=== PATIENT | female | born 1995 | race African-American/Black ===

== ENCOUNTER 2019-12-07 04:34 | Day surgery (SDC) | payer OTHER ==
[2019-12-06 10:35] VITALS: BMI 53.1
[~2019-12-07 04:34] MED LIST: BUPIVACAINE HCL/PF 0.5% (5 MG/ML) 30 ML VIAL IJ ONE; IOHEXOL 180 MG/1 ML ML IJ ONE; LIDOCAINE HCL 1%, 10 MG/ML (20ML VIAL) INF ONE
[2019-12-07] MEDS ORDERED: LIDOCAINE HCL 1%, 10 MG/ML (20ML VIAL) ONE (07:16)
[2019-12-07] MEDS ORDERED: BUPIVACAINE HCL/PF 0.25% (2.5MG/ML) 10 ML VIAL ONE (07:16)
[2019-12-07] MEDS ORDERED: LIDOCAINE HCL 1%, 10 MG/ML (20ML VIAL) INF ONE (11:48)
[2019-12-07] MEDS ORDERED: IOHEXOL 180 MG/1 ML ML IJ ONE (11:49)
[2019-12-07] MEDS ORDERED: BUPIVACAINE HCL/PF 0.75% 10 ML VIAL PNB ONE (11:49)
[2019-12-07 13:28] VITALS: TEMP 97.4
[2019-12-07 13:33] VITALS: BP 120/70; PULSE 74
--- NOTE | 2019-12-10 22:03 | PROC ---
Procedure Note Procedure: Pre procedure Diagnosis: Lumbar Spondylosis Post Procedure Diagnosis: same Anesthesia: Local Procedure Performed: Right and Left L3 L4 L5 Medial Branch Blocks under Fluoroscopic Guidance Procedure: After the risks and benefits were explained, informed consent was obtained. The patient was then taken to the procedure room and positioned prone on the procedure table. Time out was performed. The region overlying the appropriate vertebral bodies was identified using fluoroscopy. The skin was prepped and draped in the usual sterile fashion. The skin and soft tissues were anesthetized using 1% lidocaine. Using fluoroscopic guidance, 22 gauge 5 inch spinal needles were then introduced to the juncture of the superior articular processes and the transverse processes of the RIGHT L3, L4, and L5 medial branches are located. Omnipaque 180 confirmed appropriate needle placement. There was no epidural or vascular flow observed. .75% bupivacaine was drawn into a syringe. 0.5cc of this solution was then injected at each level. The same procedure was repeated on the LEFT side at the same levels. The patient tolerated the procedure well and there were no complications. The patient was taken to the post procedure recovery area in good condition. Vital signs remained stable before, and after the procedure. The patient was given oral follow-up instructions.The patient was givena follow up appointment with me in the near future. Janusz Osullivan D.O.
== END 2019-12-07 13:05 | disposition home or self-care (01) ==
LOC: JASU-SURG 04:34
PROVIDERS: ATTEND Pain Medicine Pain Medicine
PROC: 3E0T33Z Introduction of Anti-inflammatory into Peripheral Nerves and Plexi, Percutaneous Approach (ICD-10-PCS; 2019-12-07)
PROC: 3E0T3BZ Introduction of Anesthetic Agent into Peripheral Nerves and Plexi, Percutaneous Approach (ICD-10-PCS; principal; 2019-12-07 11:30)
DX: M47.817 Spondylosis without myelopathy or radiculopathy, lumbosacral region (principal); M54.5 Low back pain
CPT/HCPCS: 36415; 76000-TC-FY; 84703

== ENCOUNTER 2019-12-21 05:23 | Day surgery (SDC) | payer OTHER ==
[2019-12-20 08:35] VITALS: BMI 53.1
[~2019-12-21 05:23] MED LIST changes: -BUPIVACAINE HCL/PF 0.5% (5 MG/ML) 30 ML VIAL IJ ONE; +BUPIVACAINE HCL/PF 0.75% 10 ML VIAL NR ONE; +LIDOCAINE HCL 1% PRESERVATIVE FREE - 30ML VIAL NR ONE; -LIDOCAINE HCL 1%, 10 MG/ML (20ML VIAL) INF ONE
--- NOTE | 2019-12-21 11:41 | PROC ---
Procedure Note Procedure: Pre procedure Diagnosis: Sacroilliac Joint Dysfunction Post Procedure Diagnosis: same Anesthesia: local Procedure Performed: Right & Left Sacroilliac Joint Injection Under Fluoroscopic Guidance After the risks and benefits were explained, informed consent was obtained. The patient was then taken to the procedure room and positioned prone on the procedure table. Time out was performed. The region overlying the right sacroiliac joint was identified using fluoroscopy. The skin was prepped and draped in the usual sterile fashion. The skin and soft tissues were anesthetized using 2% lidocaine. Using fluoroscopic guidance, a 22 gauge 3.5 inch spinal needle was then introduced to the inferior aspect of the posterior Right sacroiliac joint. Omnipaque 180 confirmed appropriate needle placement. 1 cc .5% bupivacaine and 1 cc Kenalog was then injected. The same was repeated on the Left. The patient tolerated the procedure well and there were no complications. The patient was taken to the post procedure recovery area in good condition. Vital signs remained stable before, during, and after the procedure. The patient was given oral and written follow-up instructions. The patient was given a follow up appointment with me in the near future. Janusz Osullivan DO
--- NOTE | 2019-12-21 11:41 | HP ---
Admitting History and Physical - Admission Chief Complaint: Chronic low back pain History of Present Illness: The patient complains of chronic low back pain. History Source: Patient - Past Medical History ...LMP: 12/16/19 - Smoking History Smoking history: Never smoked Home Medications - Allergies Allergies/Adverse Reactions: Allergies Allergy/AdvReac Type Severity Reaction Status Date / Time No Known Allergies Allergy Verified 12/21/19 10:15 - Home Medications Home Medications: Ambulatory Orders Benztropine Mesylate [Cogentin -] 1 mg PO TID 12/06/19 Gabapentin [Neurontin] 600 mg PO BID 12/06/19 Haloperidol [Haldol -] 2.5 mg PO DAILY 12/06/19 Haloperidol [Haldol -] 5 mg PO HS 12/06/19 LORazepam [Ativan] 0.5 mg PO TID 12/06/19 Paroxetine HCl [Paxil] 50 mg PO HS 12/06/19 Quetiapine Fumarate [Seroquel] 400 mg PO HS 12/06/19 traZODone HCL [Trazodone HCl] 50 mg PO DAILY 12/20/19 Review of Systems - Review of Systems Constitutional: reports: No Symptoms Eyes: reports: No Symptoms HENT: reports: No Symptoms Neck: reports: No Symptoms Cardiovascular: reports: No Symptoms Respiratory: reports: No Symptoms Gastrointestinal: reports: No Symptoms Genitourinary: reports: No Symptoms Musculoskeletal: reports: Back Pain Neurological: reports: No Symptoms Endocrine: reports: No Symptoms Hematology/Lymphatic: reports: No Symptoms Psychiatric: reports: No Symptoms Physical Examination Vital Signs: Vital Signs Temperature 97.1 F L 12/21/19 09:30 Pulse Rate 82 12/21/19 09:30 Respiratory Rate 20 12/21/19 09:30 Blood Pressure 114/74 12/21/19 09:30 O2 Sat by Pulse Oximetry (%) 98 12/21/19 10:22 Constitutional: Yes: No Distress, Calm Eyes: Yes: Conjunctiva Clear, EOM Intact HENT: Yes: Atraumatic, Normocephalic Neck: Yes: Trachea Midline Cardiovascular: Yes: Regular Rate and Rhythm Respiratory: Yes: WNL, Regular Gastrointestinal: Yes: WNL Musculoskeletal: Yes: Back Pain Extremities: Yes: WNL Neurological: Yes: WNL ...Motor Strength: WNL Psychiatric: Yes: WNL Imaging - Results X-ray: Report Reviewed, Image Reviewed MRI: Report Reviewed, Image Reviewed Assessment/Plan The patients low back adn buttock pain 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 I will perform bilateral SIJ injections.
[2019-12-21] MEDS ORDERED: LIDOCAINE HCL/PF 1% SDV 5ML VIAL ONE (12:16)
[2019-12-21] MEDS ORDERED: TRIAMCINOLONE ACET 40MG/1ML VIAL ONE (12:21)
[2019-12-21] MEDS ORDERED: IOHEXOL 180 MG/1 ML ML IJ ONE (12:33)
[2019-12-21] MEDS ORDERED: BUPIVACAINE HCL/PF 0.5% (5 MG/ML) 30 ML VIAL IJ ONE (12:34)
[2019-12-21] MEDS ORDERED: TRIAMCINOLONE ACET 40MG/1ML VIAL IM ONE (12:34)
[2019-12-21] MEDS ORDERED: LIDOCAINE HCL 1% PRESERVATIVE FREE - 30ML VIAL NR ONE (12:36)
[2019-12-21 13:18] VITALS: PULSE 80; TEMP 97.2
[2019-12-21 13:59] VITALS: BP 100/50
== END 2019-12-21 13:40 | disposition home or self-care (01) ==
LOC: JASU-SURG 05:23
PROVIDERS: ATTEND Pain Medicine Pain Medicine
PROC: 3E0U3BZ Introduction of Anesthetic Agent into Joints, Percutaneous Approach (ICD-10-PCS; 2019-12-21)
PROC: 3E0U33Z Introduction of Anti-inflammatory into Joints, Percutaneous Approach (ICD-10-PCS; principal; 2019-12-21 10:30)
DX: M53.3 Sacrococcygeal disorders, not elsewhere classified (principal); M54.5 Low back pain
CPT/HCPCS: 36415; 76000-TC-FY; 84703

== ENCOUNTER 2020-01-18 04:41 | Day surgery (SDC) | payer OTHER ==
[2020-01-17 15:52] VITALS: BMI 53.5
--- NOTE | 2020-01-17 22:46 | PROC ---
Procedure Note Procedure: Pre procedure Diagnosis: Sacroiliac dysfunction Post Procedure Diagnosis: same Anesthesia: Local Procedure Performed: Right and Left L5 Medial Branch Block and S1 S2 S3 Lateral branch blocks under Fluoroscopic Guidance Procedure: After the risks and benefits were explained, informed consent was obtained. The patient was then taken to the procedure room and positioned prone on the procedure table. Time out was performed. The region overlying the appropriate vertebral bodies was identified using fluoroscopy. The skin was prepped and draped in the usual sterile fashion. The skin and soft tissues were anesthetized using 1% lidocaine. Using fluoroscopic guidance, 22 gauge 3.5 inch spinal needles were then introduced to the juncture of the superior articular processes and the transverse processes of the RIGHTL5 medial branches and the superior lateral S1 S2 Ss3 foramens where the lateral branches are located. Omnipaque 180 confirmed appropriate needle placement. There was no epidural or vascular flow observed. .75% bupivacaine was drawn into a syringe. 0.5cc of this solution was then injected at each level. The same procedure was repeated on the LEFT side at the same levels. The patient tolerated the procedure well and there were no complications. The patient was taken to the post procedure recovery area in good condition. Vital signs remained stable before, and after the procedure. The patient was given oral follow-up instructions.The patient was givena follow up appointment with me in the near future. Janusz Osullivan D.O.
[2020-01-18] MEDS ORDERED: BUPIVACAINE HCL/PF 0.75% 10 ML VIAL NR ONE (11:11)
[2020-01-18] MEDS ORDERED: LIDOCAINE HCL 1% PRESERVATIVE FREE - 30ML VIAL IJ ONE (11:11)
[2020-01-18] MEDS ORDERED: IOHEXOL 180 MG/1 ML ML IJ ONE (11:11)
[2020-01-18 12:05] VITALS: BP 103/57; PULSE 73; TEMP 97.3
== END 2020-01-18 12:30 | disposition home or self-care (01) ==
LOC: JASU-SURG 04:41
PROVIDERS: ATTEND Pain Medicine Pain Medicine
PROC: 3E0T33Z Introduction of Anti-inflammatory into Peripheral Nerves and Plexi, Percutaneous Approach (ICD-10-PCS; 2020-01-18)
PROC: 3E0T3BZ Introduction of Anesthetic Agent into Peripheral Nerves and Plexi, Percutaneous Approach (ICD-10-PCS; principal; 2020-01-18 10:30)
DX: M53.3 Sacrococcygeal disorders, not elsewhere classified (principal)
CPT/HCPCS: 76000-TC-FY; 84703

== ENCOUNTER 2020-02-29 04:13 | Day surgery (SDC) | payer OTHER ==
[2020-02-28 18:31] VITALS: BMI 51.5
[2020-02-29] MEDS ORDERED: LIDOCAINE 1% P/F 10 MG/ML VIAL INF ONE (12:54)
[2020-02-29] MEDS ORDERED: LIDOCAINE HCL/PF 1% SDV 5ML VIAL ONE (13:31)
[2020-02-29] MEDS ORDERED: BUPIVACAINE HCL/PF 0.75% 10 ML VIAL ONE (13:31)
[2020-02-29 14:44] VITALS: BP 124/67; PULSE 69; TEMP 97.8
== END 2020-02-29 14:05 | disposition home or self-care (01) ==
LOC: JASU-SURG 04:13
PROVIDERS: ATTEND Pain Medicine Pain Medicine
PROC: 01HY3MZ Insertion of Neurostimulator Lead into Peripheral Nerve, Percutaneous Approach (ICD-10-PCS; principal; 2020-02-29 12:00)
DX: G89.4 Chronic pain syndrome (principal); M54.5 Low back pain
CPT/HCPCS: 64555; C1778; 81025

== ENCOUNTER 2020-03-14 05:39 | Day surgery (SDC) | payer OTHER ==
[2020-03-12 18:05] VITALS: BMI 51.5
[2020-03-14] MEDS ORDERED: LIDOCAINE HCL 1% PRESERVATIVE FREE - 30ML VIAL INF ONE (10:42)
[2020-03-14 12:02] VITALS: BP 126/68; PULSE 73; TEMP 97.3
== END 2020-03-14 12:20 | disposition home or self-care (01) ==
LOC: JASU-SURG 05:39
PROVIDERS: ATTEND Pain Medicine Pain Medicine
PROC: 01HY3MZ Insertion of Neurostimulator Lead into Peripheral Nerve, Percutaneous Approach (ICD-10-PCS; principal; 2020-03-14 10:00)
DX: G89.4 Chronic pain syndrome (principal); M54.5 Low back pain
CPT/HCPCS: 64555; C1778; 76000-TC-FY; 81025

== ENCOUNTER 2020-04-18 04:25 | Day surgery (SDC) | payer OTHER ==
[2020-04-14 13:24] VITALS: BMI 51.5
[2020-04-18] MEDS ORDERED: BUPIVACAINE HCL/PF 0.75% 10 ML VIAL ONE (08:03)
[2020-04-18] MEDS ORDERED: SODIUM CHLORIDE 0.9% P/F 10 ML VIAL IJ ONE (08:06)
[2020-04-18] MEDS ORDERED: LIDOCAINE HCL/PF 2% SDV 5ML VIAL ONE (08:06)
[2020-04-18] MEDS ORDERED: LIDOCAINE HCL/PF 1% SDV 5ML VIAL ONE (08:11)
[2020-04-18] MEDS ORDERED: DEXAMETHASONE SOD PHOSPHATE/PF 10 MG/ML SDV ONE (08:11)
[2020-04-18] MEDS ORDERED: LIDOCAINE HCL 1% PRESERVATIVE FREE - 30ML VIAL INF ONE (09:24)
[2020-04-18 11:24] VITALS: BP 100/60; PULSE 68; TEMP 97.6
== END 2020-04-18 11:30 | disposition home or self-care (01) ==
LOC: JASU-SURG 04:25
PROVIDERS: ATTEND Pain Medicine Pain Medicine
PROC: 01HY3MZ Insertion of Neurostimulator Lead into Peripheral Nerve, Percutaneous Approach (ICD-10-PCS; principal; 2020-04-18)
DX: G89.4 Chronic pain syndrome (principal); M54.5 Low back pain
CPT/HCPCS: 64555; C1778; 36415; 76000-TC-FY; 84703

== ENCOUNTER 2020-11-28 04:38 | Day surgery (SDC) | payer OTHER ==
[2020-11-26 14:22] VITALS: BMI 51.2
[2020-11-28] MEDS ORDERED: LIDOCAINE HCL 1% PRESERVATIVE FREE - 30ML VIAL IJ ONE (12:48)
[2020-11-28 14:53] VITALS: BP 106/60; PULSE 64; TEMP 97.4
== END 2020-11-28 14:05 | disposition home or self-care (01) ==
LOC: JASU-SURG 04:38
PROVIDERS: ATTEND Pain Medicine Pain Medicine
PROC: 01HY3MZ Insertion of Neurostimulator Lead into Peripheral Nerve, Percutaneous Approach (ICD-10-PCS; principal; 2020-11-28 12:15)
DX: G89.4 Chronic pain syndrome (principal); M54.5 Low back pain
CPT/HCPCS: 64555; C1897; 76000-TC-FY; 81025

== ENCOUNTER 2020-12-19 04:24 | Day surgery (SDC) | payer OTHER ==
[2020-12-17 09:30] VITALS: BMI 51.2
[~2020-12-19 04:24] MED LIST changes: -BUPIVACAINE HCL/PF 0.75% 10 ML VIAL NR ONE; -IOHEXOL 180 MG/1 ML ML IJ ONE; +LIDOCAINE HCL 1% PRESERVATIVE FREE - 30ML VIAL IJ ONE; -LIDOCAINE HCL 1% PRESERVATIVE FREE - 30ML VIAL NR ONE
[2020-12-19] MEDS ORDERED: LIDOCAINE HCL 1% PRESERVATIVE FREE - 30ML VIAL IJ ONE ×2 (12:53)
[2020-12-19 13:38] VITALS: BP 123/78; PULSE 57; TEMP 98.4
[2020-12-19] MEDS ORDERED: LIDOCAINE HCL/PF 1% SDV 5ML VIAL ONE (13:41)
== END 2020-12-19 14:00 | disposition home or self-care (01) ==
LOC: JASU-SURG 04:24
PROVIDERS: ATTEND Pain Medicine Pain Medicine
PROC: 01HY3MZ Insertion of Neurostimulator Lead into Peripheral Nerve, Percutaneous Approach (ICD-10-PCS; principal; 2020-12-19 12:15)
DX: G89.4 Chronic pain syndrome (principal)
CPT/HCPCS: 64555; C1778; 76000-TC-FY; 81025

== ENCOUNTER 2021-07-24 04:08 | Day surgery (SDC) | payer OTHER ==
[2021-07-20 17:42] VITALS: BMI 51.2
[2021-07-24] MEDS ORDERED: LIDOCAINE HCL/PF 1% SDV 5ML VIAL ONE (07:21)
[2021-07-24] MEDS ORDERED: ACETAMINOPHEN 650 MG/20.3 ML ORAL SOLUTION (CUPS) PO ONE ×2 (12:21→12:25)
[2021-07-24] MEDS ORDERED: ACETAMINOPHEN 650 MG/20.3 ML ORAL SOLUTION (CUPS) ONE (12:21)
[2021-07-24 12:31] VITALS: BP 95/50; PULSE 59; TEMP 98
== END 2021-07-24 12:45 | disposition home or self-care (01) ==
LOC: JASU-SURG 04:08
PROVIDERS: ATTEND Pain Medicine Pain Medicine
PROC: 01HY3MZ Insertion of Neurostimulator Lead into Peripheral Nerve, Percutaneous Approach (ICD-10-PCS; principal; 2021-07-24 11:30)
DX: G89.4 Chronic pain syndrome (principal); M54.50 Low back pain, unspecified
CPT/HCPCS: 64555; C1897; 76000-TC-FY; 81025

== ENCOUNTER 2021-08-18 04:31 | Day surgery (SDC) | payer OTHER ==
[2021-08-13 16:03] VITALS: BMI 51.1
[2021-08-18] MEDS ORDERED: LIDOCAINE HCL/PF 1% SDV 5ML VIAL ONE (09:50)
[2021-08-18] MEDS ORDERED: LIDOCAINE HCL/PF 2% SDV 5ML VIAL ONE (09:51)
[2021-08-18] MEDS ORDERED: LIDOCAINE HCL 1% PRESERVATIVE FREE - 30ML VIAL IJ ONE ×2 (10:57)
[2021-08-18] MEDS ORDERED: IBUPROFEN 600 MG TABLET (FP) PO ONE (11:43)
[2021-08-18] MEDS ORDERED: IBUPROFEN *ORAL SUSPENSION* 100 MG/5 ML PO ONE (12:00)
[2021-08-18] MEDS ORDERED: IBUPROFEN 100 MG/5 ML UNIT DOSE CUPS PO ONE (12:15)
[2021-08-18 13:06] VITALS: BP 114/58; PULSE 80; TEMP 97.7
== END 2021-08-18 12:30 | disposition home or self-care (01) ==
LOC: JASU-SURG 04:31
PROVIDERS: ATTEND Pain Medicine Pain Medicine
PROC: 01HY3MZ Insertion of Neurostimulator Lead into Peripheral Nerve, Percutaneous Approach (ICD-10-PCS; principal; 2021-08-18 11:00)
DX: G89.4 Chronic pain syndrome (principal); M54.50 Low back pain, unspecified
CPT/HCPCS: 64555; C1897; 76000-TC-FY; 81025

== ENCOUNTER 2022-03-30 04:26 | Day surgery (SDC) | payer OTHER ==
[2022-03-26 13:36] VITALS: BMI 51.1
[2022-03-30] MEDS ORDERED: LIDOCAINE HCL/PF 1% SDV 5ML VIAL ONE (07:09)
[2022-03-30 09:24] VITALS: RESP 18
[2022-03-30] MEDS ORDERED: LIDOCAINE HCL 1% PRESERVATIVE FREE - 30ML VIAL IJ ONE (10:25)
[2022-03-30 10:59] VITALS: PULSE 58; TEMP 97.5
[2022-03-30 11:33] VITALS: BP 106/72
== END 2022-03-30 12:15 | disposition home or self-care (01) ==
LOC: JASU-SURG 04:26
PROVIDERS: ATTEND Pain Medicine Pain Medicine
PROC: 01HY3MZ Insertion of Neurostimulator Lead into Peripheral Nerve, Percutaneous Approach (ICD-10-PCS; principal; 2022-03-30 10:00)
DX: G89.4 Chronic pain syndrome (principal)
CPT/HCPCS: 64555; C1897; 76000-TC-FY; 81025; C1778

== ENCOUNTER 2022-04-09 04:08 | Day surgery (SDC) | payer OTHER ==
[2022-04-07 16:12] VITALS: BMI 51.1
[~2022-04-09 04:08] MED LIST changes: -LIDOCAINE HCL 1% PRESERVATIVE FREE - 30ML VIAL IJ ONE; +LIDOCAINE HCL 1% PRESERVATIVE FREE - 30ML VIAL PNB ONE
[2022-04-09] MEDS ORDERED: LIDOCAINE HCL/PF 1% SDV 5ML VIAL ONE (07:19)
[2022-04-09] MEDS ORDERED: LIDOCAINE HCL 1% PRESERVATIVE FREE - 30ML VIAL PNB ONE ×2 (08:36)
[2022-04-09 09:08] VITALS: RESP 18
[2022-04-09 10:07] VITALS: BP 123/60; PULSE 76; TEMP 97.7
== END 2022-04-09 10:00 | disposition home or self-care (01) ==
LOC: JASU-SURG 04:08
PROVIDERS: ATTEND Pain Medicine Pain Medicine
PROC: 01HY3MZ Insertion of Neurostimulator Lead into Peripheral Nerve, Percutaneous Approach (ICD-10-PCS; principal; 2022-04-09 08:15)
DX: G89.4 Chronic pain syndrome (principal); M54.50 Low back pain, unspecified
CPT/HCPCS: 64555; C1778; 76000-TC-FY; 81025

== ENCOUNTER 2022-06-29 05:16 | Day surgery (SDC) | payer OTHER ==
[2022-06-25 13:12] VITALS: BMI 54.8
[2022-06-29 09:12] VITALS: RESP 18
[2022-06-29] MEDS ORDERED: LIDOCAINE 1% P/F 10 MG/ML VIAL PNB ONE (11:15)
[2022-06-29 13:29] VITALS: BP 123/72; PULSE 67; TEMP 98.2
== END 2022-06-29 12:21 | disposition home or self-care (01) ==
LOC: JASU-SURG 05:16
PROVIDERS: ATTEND Pain Medicine Pain Medicine
PROC: 01HY3MZ Insertion of Neurostimulator Lead into Peripheral Nerve, Percutaneous Approach (ICD-10-PCS; principal; 2022-06-29 11:00)
DX: G89.4 Chronic pain syndrome (principal)
CPT/HCPCS: 64555; C1778; 36415; 76000-TC-FY; 84703

== ENCOUNTER 2022-07-16 04:00 | Day surgery (SDC) | payer OTHER ==
[2022-07-14 11:20] VITALS: BMI 54.8
[2022-07-16] MEDS ORDERED: LIDOCAINE HCL/PF 1% SDV 5ML VIAL ONE (07:42)
[2022-07-16 09:04] VITALS: RESP 20
[2022-07-16] MEDS ORDERED: LIDOCAINE HCL 1% PRESERVATIVE FREE - 30ML VIAL IJ ONE ×2 (09:31)
[2022-07-16 13:10] VITALS: BP 116/50; PULSE 82; TEMP 97.8
[2022-07-16] MEDS ORDERED: ACETAMINOPHEN 500 MG TABLET (FP) PO PRN (16:14)
== END 2022-07-16 10:00 | disposition home or self-care (01) ==
LOC: JASU-SURG 04:00
PROVIDERS: ATTEND Pain Medicine Pain Medicine
PROC: 01HY3MZ Insertion of Neurostimulator Lead into Peripheral Nerve, Percutaneous Approach (ICD-10-PCS; principal; 2022-07-16 10:00)
DX: G89.4 Chronic pain syndrome (principal); M54.50 Low back pain, unspecified
CPT/HCPCS: 64555; C1778; 76000-TC-FY; 81025

== ENCOUNTER 2023-01-13 07:40 | Day surgery (SDC) | payer OTHER ==
[2023-01-10 18:01] VITALS: BMI 56.7
[2023-01-13 08:32] VITALS: TEMP 97.5
[2023-01-13] MEDS ORDERED: BUPIVACAINE HCL/PF 2.5 MG/ML - 30 ML VIAL IJ ONE (10:10)
[2023-01-13] MEDS ORDERED: ONDANSETRON 4 MG/2 ML VIAL IVPUSH PRN (10:11)
[2023-01-13] MEDS ORDERED: ACETAMINOPHEN 325 MG TABLET (FP) PO PRN (10:11)
[2023-01-13] MEDS ORDERED: LACTATED RINGERS SOLUTION 1,000 ML IV SCH (10:15)
[2023-01-13] MEDS ORDERED: ACETAMINOPHEN INJECTION 100 ML IVPB ONE (10:18)
[2023-01-13] MEDS ORDERED: MIDAZOLAM HCL 2 MG/2 ML SINGLE DOSE VIAL ONE (10:18)
[2023-01-13] MEDS ORDERED: KETOROLAC TROMETHAMINE 30 MG/1 ML VIAL ONE (11:18)
[2023-01-13] MEDS ORDERED: PROPOFOL 20 ML ONE (11:18)
[2023-01-13] MEDS ORDERED: ONDANSETRON 4 MG/2 ML VIAL ONE (11:18)
[2023-01-13] MEDS ORDERED: BUPIVACAINE HCL/PF 0.25% (2.5MG/ML) 10 ML VIAL IJ ONE (11:47)
[2023-01-13 13:32] VITALS: RESP 18
[2023-01-13] MEDS ORDERED: oxyCODONE HCL 5 MG TABLET ONE ×2 (13:51→15:06)
[2023-01-13] MEDS: oxyCODONE HCL 5 MG TABLET PO PRN ×2 (13:55→15:10)
[2023-01-13 15:20] VITALS: BP 132/86; PULSE 67
== END 2023-01-13 17:18 | disposition home or self-care (01) ==
LOC: FASU 07:40
PROVIDERS: ATTEND Orthopaedic Surgery
PROC: 0SBC4ZZ Excision of Right Knee Joint, Percutaneous Endoscopic Approach (ICD-10-PCS; 2023-01-13)
PROC: 0SBC4ZZ Excision of Right Knee Joint, Percutaneous Endoscopic Approach (ICD-10-PCS; principal; 2023-01-13 11:31)
DX: S83.8X1A Sprain of other specified parts of right knee, initial encounter (principal); M65.861 Other synovitis and tenosynovitis, right lower leg; X58.XXXA Exposure to other specified factors, initial encounter; Y93.9 Activity, unspecified; Y92.9 Unspecified place or not applicable
CPT/HCPCS: 81025; 94760

== ENCOUNTER 2023-04-15 04:06 | Day surgery (SDC) | payer OTHER ==
[2023-04-06 14:32] VITALS: BMI 54.8
[~2023-04-15 04:06] MED LIST changes: +LIDOCAINE 1% P/F 10 MG/ML VIAL INF ONE; -LIDOCAINE HCL 1% PRESERVATIVE FREE - 30ML VIAL PNB ONE; +LIDOCAINE HCL/PF 2% SDV 5ML VIAL INF ONE
[2023-04-15] MEDS ORDERED: BUPIVACAINE HCL/PF 0.75% 10 ML VIAL ONE (07:16)
[2023-04-15] MEDS ORDERED: LIDOCAINE HCL/PF 1% SDV 5ML VIAL ONE (07:16)
[2023-04-15] MEDS ORDERED: LIDOCAINE HCL 2% (20ML MULTI-DOSE VIAL) ONE (07:36)
[2023-04-15] MEDS ORDERED: LIDOCAINE HCL/PF 2% SDV 5ML VIAL ONE (07:36)
[2023-04-15] MEDS ORDERED: LIDOCAINE 1% P/F 10 MG/ML VIAL INF ONE ×2 (08:58)
[2023-04-15] MEDS ORDERED: ACETAMINOPHEN 500 MG TABLET (FP) PO PRN (09:35)
[2023-04-15 10:10] VITALS: BP 120/66; PULSE 67; RESP 20; TEMP 98.2
== END 2023-04-15 10:30 | disposition home or self-care (01) ==
LOC: JASU-SURG 04:06
PROVIDERS: ATTEND Pain Medicine Pain Medicine
PROC: 01HY3MZ Insertion of Neurostimulator Lead into Peripheral Nerve, Percutaneous Approach (ICD-10-PCS; principal; 2023-04-15 08:00)
DX: G89.4 Chronic pain syndrome (principal)
CPT/HCPCS: 64555; C1778; 76000-TC-FY; 81025

== ENCOUNTER 2023-05-03 04:16 | Day surgery (SDC) | payer OTHER ==
[2023-04-27 19:02] VITALS: BMI 54.8
[~2023-05-03 04:16] MED LIST changes: -LIDOCAINE HCL/PF 2% SDV 5ML VIAL INF ONE
[2023-05-03] MEDS ORDERED: LIDOCAINE HCL/PF 1% SDV 5ML VIAL ONE (07:16)
[2023-05-03] MEDS ORDERED: LIDOCAINE 1% P/F 10 MG/ML VIAL INF ONE (08:46)
[2023-05-03 09:11] VITALS: BP 125/75; PULSE 72; RESP 20; TEMP 97.1
[2023-05-03] MEDS ORDERED: ACETAMINOPHEN 500 MG TABLET (FP) PO PRN (11:24)
== END 2023-05-03 09:50 | disposition home or self-care (01) ==
LOC: JASU-SURG 04:16
PROVIDERS: ATTEND Pain Medicine Pain Medicine
PROC: 01HY3MZ Insertion of Neurostimulator Lead into Peripheral Nerve, Percutaneous Approach (ICD-10-PCS; principal; 2023-05-03 08:00)
DX: G89.4 Chronic pain syndrome (principal)
CPT/HCPCS: 64555; C1778; 76000-TC-FY; 81025

== ENCOUNTER 2023-07-01 05:10 | Day surgery (SDC) | payer OTHER ==
[2023-06-23 13:42] VITALS: BMI 54.8
[2023-07-01] MEDS: LIDOCAINE HCL 1% PRESERVATIVE FREE - 30ML VIAL IJ ONE (09:46)
[2023-07-01] MEDS: IOHEXOL 180 MG/1 ML ML IJ ONE (09:54)
[2023-07-01] MEDS: BUPIVACAINE HCL/PF 0.5% (5MG/ML) 10 ML VIAL IJ ONE ×2 (09:56)
[2023-07-01 10:14] VITALS: BP 114/59; PULSE 67; RESP 16; TEMP 97.9
[2023-07-01] MEDS ORDERED: ACETAMINOPHEN 650 MG/20.3 ML ORAL SOLUTION (CUPS) ONE (10:34)
[2023-07-01] MEDS: ACETAMINOPHEN 500 MG TABLET (FP) PO PRN (10:39)
== END 2023-07-01 13:17 | disposition home or self-care (01) ==
LOC: JASU-SURG 05:10
PROVIDERS: ATTEND Pain Medicine Pain Medicine
PROC: 3E0T33Z Introduction of Anti-inflammatory into Peripheral Nerves and Plexi, Percutaneous Approach (ICD-10-PCS; 2023-07-01)
PROC: 3E0T3BZ Introduction of Anesthetic Agent into Peripheral Nerves and Plexi, Percutaneous Approach (ICD-10-PCS; principal; 2023-07-01 10:00)
DX: M47.816 Spondylosis without myelopathy or radiculopathy, lumbar region (principal)
CPT/HCPCS: 76000-TC-FY

== ENCOUNTER 2023-08-19 03:46 | Day surgery (SDC) | payer OTHER ==
[2023-08-12 12:46] VITALS: BMI 54.4
[2023-08-19] MEDS ORDERED: LIDOCAINE HCL/PF 1% SDV 5ML VIAL ONE (07:04)
[2023-08-19] MEDS ORDERED: DEXAMETHASONE SOD PHOSPHATE 10 MG/1 ML VIAL ONE (07:04)
[2023-08-19] MEDS: DEXAMETHASONE SOD PHOSPHATE 10 MG/1 ML VIAL IVPUSH ONE ×3 (11:53)
[2023-08-19] MEDS: IOHEXOL 180 MG/1 ML ML IJ ONE ×2 (11:53)
[2023-08-19] MEDS: LIDOCAINE HCL 1% PRESERVATIVE FREE - 30ML VIAL IJ ONE ×4 (11:53)
[2023-08-19 12:21] VITALS: BP 113/70; PULSE 53; RESP 18; TEMP 97.2
[2023-08-19] MEDS ORDERED: ACETAMINOPHEN 500 MG TABLET (FP) ONE (12:24)
[2023-08-19] MEDS: ACETAMINOPHEN 500 MG TABLET (FP) PO PRN (12:36)
== END 2023-08-19 13:38 | disposition home or self-care (01) ==
LOC: JASU-SURG 03:46
PROVIDERS: ATTEND Pain Medicine Pain Medicine
PROC: 3E0R3BZ Introduction of Anesthetic Agent into Spinal Canal, Percutaneous Approach (ICD-10-PCS; 2023-08-19)
PROC: 3E0R33Z Introduction of Anti-inflammatory into Spinal Canal, Percutaneous Approach (ICD-10-PCS; principal; 2023-08-19 11:15)
DX: M54.16 Radiculopathy, lumbar region (principal); M48.061 Spinal stenosis, lumbar region without neurogenic claudication
CPT/HCPCS: 76000-TC-FY; 81025; J1100

== ENCOUNTER 2024-02-09 03:52 | Day surgery (SDC) | payer OTHER ==
[2024-02-07 14:29] VITALS: BMI 58.5
[2024-02-09] MEDS: LIDOCAINE HCL 1% PRESERVATIVE FREE - 30ML VIAL IJ ONE (10:04)
[2024-02-09] MEDS ORDERED: ACETAMINOPHEN 500 MG TABLET (FP) ONE (10:18)
[2024-02-09 10:27] VITALS: RESP 16; TEMP 97.5
[2024-02-09] MEDS: ACETAMINOPHEN 500 MG TABLET (FP) PO PRN (10:30)
[2024-02-09 11:08] VITALS: BP 99/56; PULSE 72
== END 2024-02-09 12:50 | disposition home or self-care (01) ==
LOC: JASU-SURG 03:52
PROVIDERS: ATTEND Pain Medicine Pain Medicine
PROC: 01HY3MZ Insertion of Neurostimulator Lead into Peripheral Nerve, Percutaneous Approach (ICD-10-PCS; principal; 2024-02-09 08:30)
DX: G89.4 Chronic pain syndrome (principal); M54.50 Low back pain, unspecified
CPT/HCPCS: 64555; C1778; 76000-TC-FY; 81025

== ENCOUNTER 2024-03-01 04:00 | Day surgery (SDC) | payer OTHER ==
[2024-02-27 14:05] VITALS: BMI 58.5
[2024-03-01] MEDS ORDERED: BUPIVACAINE HCL/PF 0.25% (2.5MG/ML) 10 ML VIAL ONE (07:31)
[2024-03-01] MEDS: LIDOCAINE 1% P/F 10 MG/ML VIAL PNB ONE (09:07)
[2024-03-01] MEDS ORDERED: ACETAMINOPHEN 500 MG TABLET (FP) ONE (09:28)
[2024-03-01] MEDS: ACETAMINOPHEN 500 MG TABLET (FP) PO PRN (09:32)
[2024-03-01 09:35] VITALS: RESP 18
[2024-03-01 10:09] VITALS: TEMP 98
[2024-03-01 11:03] VITALS: BP 106/70; PULSE 64
== END 2024-03-01 11:03 | disposition home or self-care (01) ==
LOC: JASU-SURG 04:00
PROVIDERS: ATTEND Pain Medicine Pain Medicine
PROC: 01HY3MZ Insertion of Neurostimulator Lead into Peripheral Nerve, Percutaneous Approach (ICD-10-PCS; principal; 2024-03-01 08:00)
DX: G89.4 Chronic pain syndrome (principal); M54.50 Low back pain, unspecified
CPT/HCPCS: 64555; C1778; 76000-TC-FY; 81025

== ENCOUNTER 2024-04-26 04:16 | Day surgery (SDC) | payer OTHER ==
[2024-04-25 11:33] VITALS: BMI 58.5
[2024-04-26] MEDS ORDERED: LIDOCAINE HCL/PF 1% SDV 5ML VIAL ONE (07:14)
[2024-04-26 09:46] VITALS: BP 128/70; PULSE 72; RESP 20; TEMP 97.5
[2024-04-26] MEDS: LIDOCAINE HCL 1% PRESERVATIVE FREE - 30ML VIAL IJ ONE ×2 (11:09)
[2024-04-26] MEDS ORDERED: ACETAMINOPHEN 500 MG TABLET (FP) ONE (11:34)
[2024-04-26] MEDS: ACETAMINOPHEN 500 MG TABLET (FP) PO PRN (11:51)
== END 2024-04-26 13:12 | disposition home or self-care (01) ==
LOC: JASU-SURG 04:16
PROVIDERS: ATTEND Pain Medicine Pain Medicine
PROC: 01HY3MZ Insertion of Neurostimulator Lead into Peripheral Nerve, Percutaneous Approach (ICD-10-PCS; principal; 2024-04-26 11:15)
DX: G89.4 Chronic pain syndrome (principal)
CPT/HCPCS: 64555; C1778; 81025

== ENCOUNTER 2024-05-31 06:51 | Day surgery (SDC) | payer OTHER ==
[2024-05-29 16:54] VITALS: BMI 58.5
[2024-05-31] MEDS: LIDOCAINE HCL 1% PRESERVATIVE FREE - 30ML VIAL IJ ONE (09:27)
[2024-05-31 11:53] VITALS: BP 110/72; PULSE 68; RESP 20; TEMP 98.1
[2024-05-31] MEDS ORDERED: ACETAMINOPHEN 500 MG TABLET (FP) PO PRN (17:11)
== END 2024-05-31 12:26 | disposition home or self-care (01) ==
LOC: JASU-SURG 06:51
PROVIDERS: ATTEND Pain Medicine Pain Medicine
PROC: 01HY3MZ Insertion of Neurostimulator Lead into Peripheral Nerve, Percutaneous Approach (ICD-10-PCS; principal; 2024-05-31 09:00)
DX: G89.4 Chronic pain syndrome (principal); M25.561 Pain in right knee
CPT/HCPCS: 64555; C1778; 81025